=== PATIENT | male | born 1945 | race Caucasian/White ===

== ENCOUNTER → 2016-09-30 | Outpatient (CLI) | payer OTHER ==
[~2016-09-30] MED LIST: AMLO5TAB2 PO; CHOL20009; DXM/4 PO; FINA5TAB PO; HYDR25TA4 PO; LISI20TA3 PO; LISI5TAB PO; PANT40TA PO; TAMS0.4C38 PO
== END | disposition home or self-care (01) ==
LOC: C.LABPVFM 11:12
PROVIDERS: ATTEND Neurological Surgery
DX: C71.9 Malignant neoplasm of brain, unspecified (principal)

== ENCOUNTER → 2016-10-27 | Outpatient (CLI) | payer OTHER ==
[2016-10-27 14:13] VITALS: BP 116/78; PULSE 77; TEMP 36.5; O2SAT 97
--- NOTE | 2016-10-27 16:16 | Radiation Oncology Follow-Up ---
Radiation Oncology Follow-Up Date of Visit Oct 27, 2016. (Maria Elena Mcqueen PA-C) Reason For Visit 6 month follow-up (Maria Elena Mcqueen PA-C) Radiation Completion Date 03/17/16 (Maria Elena Mcqueen PA-C) Diagnosis (1) Glioblastoma Onset Date: 01/03/2016 Location: left parietal lobe Histology Subtype: GBM Stage: IV Permanent Comment: DIAGNOSIS: Brain, left parietal lobe, glioblastoma status post resection Status post completion of combined radiation and chemotherapy. Radiation completed 03/17/2016 received 6000 cGy. Chemotherapy comprised of Temodar. Will continue Temodar Last Edited By: Maria Elena Mcqueen on Apr 21, 2016 15:50 ( Maria Elena Mcqueen PA-C) History of Present Illness Mr. Qureshi is a 71-year-old gentleman who was previously in good health who recently started having issues with confusion which came on abruptly. The patient was brought to the emergency room with the thought that this may be a stroke. On 12/28/2015, he did have a CT of the head without contrast in the emergency Department which showed a 2.6 cm cystic lesion within the left parietal lobe with vasogenic edema. He subsequently had a CT chest on the same day which revealed no evidence of metastatic disease or a primary lung cancer. 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 He subsequently underwent a partial craniotomy underneath the supervision of Dr. Bonilla on 2015 which revealed a malignant glioma consistent with glioblastoma. The pathology was sent down for an expert second opinion consultation to [facility] and was confirmed to be glioblastoma. The patient was subsequently discharged and transferred to [facility] for subacute rehabilitation. The patient was also seen by Dr. Hayden and Dr. Saravia at [facility] for follow-up and consultation. The final recommendation was for consideration of chemotherapy with radiation therapy in the adjuvant setting. We are now seeing the patient in consultation. He completed combined radiation and chemotherapy. Radiation was completed 03/17. He received 6000 cGy. (Maria Elena Mcqueen PA-C) Interim History In the past 6 months he does have a complaint of tinnitus. This seems to be equal in both ears. He feels that associated with eating sweets. He has not had any problems with headaches or dizziness. Denies any change in vision. He has had some itchiness of the scalp and for head. There've been no changes of the skin. No redness. He is seen in follow-up by neuro-oncology. He has completed 6 months of the Temodar therapy. His most recent MRI was 10/21/2016. This showed postsurgical changes following resection of the left parietal occipital mass. 2 new nodules of enhancement in the splenium of the corpus callosum, measuring up to 9 mm in greatest dimension, without hyperemia on the perfusion study. Tiny 2 mm enhancing nodule along the lateral margin of the large surgical cavity is not change from August 2016 also without increased perfusion. His current plan of treatment is a recheck MRI of visit on 2016. His case is going to be reviewed at the neurologic cancer conference in [place]. (Maria Elena Mcqueen PA-C) Allergies Coded Allergies: No Known Allergies (Unverified , 03/21/16) Home Medications Scheduled Amlodipine Besylate (Norvasc), 1 TAB PO QAM Cholecalciferol (Vitamin D), DAILY Finasteride (Proscar), 1 TAB PO QAM Hydrochlorothiazide (Hctz), 1 TAB PO QAM Lisinopril (Prinivil), 1 TAB PO QAM Pantoprazole (Protonix), 40 MG PO DAILY Tamsulosin Hcl (Flomax), 1 CAP PO HS Review of Systems Gastrointestinal: Symptoms: WNL Oral: Symptoms: No Problems Respiratory: Symptoms: WNL Other Respiratory: pneumonia last month, no respproblem now Urinary: Symptoms: WNL Skin: Symptoms: No Problems Other Skin Symptoms: still gets itchy feeling on face or like "bugs crawling " (Maria Elena Mcqueen PA-C) Physical Exam Vital Signs Date Time Temp Pulse Resp B/P Pulse Ox O2 Delivery O2 Flow Rate FiO2 10/27/16 14:13 36.5 77 48 116/78 97 Pain: Patient Pain Scale: 0 - 10 Initial Pain Intensity: 0.0 General Appearance: no apparent distress Eyes: normal inspection, PERRL, EOMI ENT: normal ENT inspection Neck: no adenopathy, thyroid normal Respiratory/Chest: lungs clear, no respiratory distress, no accessory muscle use Cardiovascular: regular rate, rhythm, no gallop, no murmur Abdomen: non tender, soft, no organomegaly Extremities: no pedal edema Neurologic/Psychiatric: no motor/sensory deficits, alert, normal mood/affect Skin: warm/dry Lymphatic: no adenopathy (Maria Elena Mcqueen PA-C) Laboratory Studies Test 08/13/16 12:12 09/07/16 15:53 09/30/16 11:15 White Blood Count 6.86 K/uL (4.8-10.8) 5.24 K/uL (4.8-10.8) Red Blood Count 4.57 M/uL (4.7-6.1) 4.58 M/uL (4.7-6.1) Hemoglobin 14.4 g/dL (14.0-18.0) 14.4 g/dL (14.0-18.0) Hematocrit 41.7 % (42-52) 42.4 % (42-52) Mean Corpuscular Volume 91.2 fL (80-100) 92.6 fL (80-100) Mean Corpuscular Hemoglobin 31.5 pg (25-34) 31.4 pg (25-34) Mean Corpuscular Hemoglobin Concent 34.5 g/dl (32-36) 34.0 g/dl (32-36) Platelet Count 202 K/uL (130-400) 237 K/uL (130-400) Mean Platelet Volume 9.5 fL (7.4-10.4) 10.4 fL (7.4-10.4) Neutrophils (%) (Auto) 69.3 % 59.8 % Lymphocytes (%) (Auto) 17.5 % 26.0 % Monocytes (%) (Auto) 10.3 % 10.9 % Eosinophils (%) (Auto) 1.6 % 2.7 % Basophils (%) (Auto) 0.9 % 0.6 % Neutrophils # (Auto) 4.75 K/uL (1.4-6.5) 3.14 K/uL (1.4-6.5) Lymphocytes # (Auto) 1.20 K/uL (1.2-3.4) 1.36 K/uL (1.2-3.4) Monocytes # (Auto) 0.71 K/uL (0.11-0.59) 0.57 K/uL (0.11-0.59) Eosinophils # (Auto) 0.11 K/uL (0-0.5) 0.14 K/uL (0-0.5) Basophils # (Auto) 0.06 K/uL (0-0.2) 0.03 K/uL (0-0.2) RDW Standard Deviation 43.2 fL (36.4-46.3) 47.1 fL (36.4-46.3) RDW Coefficient of Variation 13.0 % (11.5-14.5) 13.9 % (11.5-14.5) Immature Granulocyte % (Auto) 0.4 % 0.0 % Immature Granulocyte # (Auto) 0.03 K/uL (0.00-0.02) 0.00 K/uL (0.00-0.02) Sodium Level 145 mmol/L (136-145) Potassium Level 3.3 mmol/L (3.5-5.1) Chloride Level 110 mmol/L (98-107) Carbon Dioxide Level 26 mmol/L (21-32) Anion Gap 9.0 mmol/L (3-11) Blood Urea Nitrogen 11 mg/dl (7-18) Creatinine 0.93 mg/dl (0.60-1.40) 1.20 mg/dl (0.60-1.40) Est Creatinine Clear Calc Drug Dose 83.3 ml/min Estimated GFR () 96.1 70.6 Estimated GFR (Non- 82.9 60.9 BUN/Creatinine Ratio 11.8 (10-20) Random Glucose 104 mg/dl (70-99) Calcium Level 8.7 mg/dl (8.5-10.1) Total Bilirubin 0.6 mg/dl (0.2-1) Aspartate Amino Transferase (AST) 17 U/L (15-37) Alanine Aminotransferase (ALT) 20 U/L (12-78) Alkaline Phosphatase 49 U/L (45-117) Total Protein 6.7 gm/dl (6.4-8.2) Albumin 3.8 gm/dl (3.4-5.0) Globulin 2.9 gm/dl (2.5-4.0) Albumin/Globulin Ratio 1.3 (0.9-2) (Maria Elena Mcqueen PA-C) Additional Studies MRI of the brain performed 10/21/2016 see history of present illness (Maria Elena Mcqueen PA-C) Assessment & Plan Plan: Patient is also seen and examined by Dr. Wells. I reviewed with him that tinnitus is a sign of decreased hearing. He may benefit from a hearing evaluation and hearing aides if recommended. We discussed the itching of the face and scalp. There can be dryness of the skin following treatment. I did recommend that he try using head and shoulders shampoo to see if this helps with the itching of the skin. He'll be seen on 11/18/2016 by neuro-oncology. He is also could have a recheck MRI of the brain at that time. We have requested a CD of the MRI from 10/21/2016. A follow-up appointment with our office was not given. He may return as needed or directed by neuro-oncology. (Maria Elena Mcqueen PA-C) I agree with note created by Maria Elena Mcqueen PA-C. I reviewed the patient's chart and information with her. I have examined and evaluated the patient. I reviewed relevant clinical information and answered the patient's and/or family' s questions. (Veeral. Wells MD) Total Time In Follow-Up I spent 20 minutes speaking to the patient performing examination. I spent 15 minutes reviewing information and completing this note. (Maria Elena Mcqueen PA-C) I spent 15 minutes examining and counseling the patient. (Veeral. Wells MD) Copy To Campos Saravia M.D.; Jaxon Vargas M.D.; Kaz Hayden MD
== END | disposition home or self-care (01) ==
LOC: C.ONC 14:01
PROVIDERS: ATTEND Radiology Radiation Oncology
DX: Z08 Encounter for follow-up examination after completed treatment for malignant neoplasm (principal); Z92.3 Personal history of irradiation; Z85.841 Personal history of malignant neoplasm of brain

== ENCOUNTER → 2016-11-02 | Outpatient (CLI) | payer OTHER ==
[~2016-11-02] MED LIST changes: -DXM/4 PO
== END | disposition home or self-care (01) ==
LOC: C.LABPVFM 16:01
PROVIDERS: ATTEND Neurological Surgery
DX: Z51.11 Encounter for antineoplastic chemotherapy (principal); C71.9 Malignant neoplasm of brain, unspecified; H53.461 Homonymous bilateral field defects, right side

== ENCOUNTER → 2016-11-30 | Outpatient (CLI) | payer OTHER | END | disposition home or self-care (01) | LOC: C.LABPVFM 15:53 | PROVIDERS: ATTEND Neurological Surgery | DX: C71.9 Malignant neoplasm of brain, unspecified (principal); I10 Essential (primary) hypertension; Z68.27 Body mass index [BMI] 27.0-27.9, adult ==

== ENCOUNTER → 2017-01-25 | Outpatient (CLI) | payer OTHER | END | disposition home or self-care (01) | LOC: C.LABPVFM 15:58 | PROVIDERS: ATTEND Neurological Surgery | DX: C71.9 Malignant neoplasm of brain, unspecified (principal); I10 Essential (primary) hypertension; Z68.27 Body mass index [BMI] 27.0-27.9, adult ==

== ENCOUNTER → 2017-02-09 | Outpatient (CLI) | payer OTHER ==
[2017-02-09 17:48] LABS: URINE APPEARANCE CLEAR (CLEAR); URINE BILIRUBIN NEG (NEG); URINE COLOR YELLOW; URINE EPITHELIAL CELL AUTO 0-5 /lpf (0-5); URINE NITRITE NEG (NEG); URINE PH 6.5 (4.5-7.5); UROBILINOGEN NEG (NEG); ZZUR CULT IF INDIC CLEAN CATCH NO
[2017-02-09 17:55] LABS: MANUAL MICROSCOPIC REQUIRED? NO; REVIEW REQ? NO
[2017-02-09 17:55] LABS: BLOOD UREA NITROGEN 17 mg/dl (7-18); CALCIUM 8.6 mg/dl (8.5-10.1); CARBON DIOXIDE 34 mmol/L (21-32); CHLORIDE 105 mmol/L (98-107); GLUCOSE 93 mg/dl (70-99); SODIUM 142 mmol/L (136-145)
== END | disposition home or self-care (01) ==
LOC: C.LABPVFM 14:19
PROVIDERS: ATTEND Family Medicine
DX: I10 Essential (primary) hypertension (principal)

== ENCOUNTER → 2017-02-23 | Outpatient (CLI) | payer OTHER ==
[2017-02-23 12:31] LABS: BASO % 0.7 %; BASO ABS # 0.05 K/uL (0-0.2); COMPLETE YES; EOS % 2.5 %; HEMATOCRIT 42.7 % (42-52); IG% 0.1 %; LYMPH % 20.9 %; LYMPH ABS # 1.45 K/uL (1.2-3.4); MEAN CELL VOLUME 93.8 fL (80-100); MEAN CORPUSCULAR HEMOGLOBIN 32.3 pg (25-34); MEAN CORPUSCULAR HGB CONC 34.4 g/dl (32-36); MEAN PLATELET VOLUME 10.2 fL (7.4-10.4); MONO % 7.6 %; NEUT % 68.2 %; PLATELET COUNT 206 K/uL (130-400); RED BLOOD COUNT 4.55 M/uL (4.7-6.1); WHITE BLOOD COUNT 6.93 K/uL (4.8-10.8)
[2017-02-23 12:42] LABS: URINE APPEARANCE CLEAR (CLEAR); URINE BILIRUBIN NEG (NEG); URINE COLOR YELLOW; URINE NITRITE NEG (NEG); URINE SPECIFIC GRAVITY 1.019 (1.000-1.030); UROBILINOGEN NEG (NEG)
[2017-02-23 12:50] LABS: MANUAL MICROSCOPIC REQUIRED? NO; REVIEW REQ? NO
[2017-02-23 13:00] LABS: ALB/GLOB RATIO 1.4 (0.9-2); ALKALINE PHOSPHATASE 49 U/L (45-117); ALT/SGPT 16 U/L (12-78); AST/SGOT 10 U/L (15-37); BLOOD UREA NITROGEN 15 mg/dl (7-18); BUN/CREATININE RATIO 12.2 (10-20); CARBON DIOXIDE 30 mmol/L (21-32); CHLORIDE 104 mmol/L (98-107); GLUCOSE 103 mg/dl (70-99); POTASSIUM 3.3 mmol/L (3.5-5.1); SODIUM 143 mmol/L (136-145)
== END | disposition home or self-care (01) ==
LOC: C.LABPVFM 08:03
PROVIDERS: ATTEND Internal Medicine Hematology & Oncology
DX: C71.3 Malignant neoplasm of parietal lobe (principal)

== ENCOUNTER 2017-03-03 21:36 | Emergency (ER) | payer OTHER ==
[~2017-03-03] VITALS: Ht 172.7 cm; Wt 82.0 kg
[~2017-03-03 21:36] MED LIST changes: -LISI20TA3 PO
[2017-03-03 21:58] VITALS: TEMP 37.4; Ht 172.7 cm; Wt 82.0 kg
[2017-03-03] MEDS ORDERED: SODIUM CHLORIDE 0.9% 1000ML 500 ML IV STA (23:10)
[2017-03-03 23:19] LABS: BASO % 0.5 %; BASO ABS # 0.05 K/uL (0-0.2); COMPLETE YES; EOS % 1.4 %; HEMATOCRIT 43.2 % (42-52); IG% 0.3 %; LYMPH ABS # 1.76 K/uL (1.2-3.4); MEAN CELL VOLUME 91.5 fL (80-100); MEAN CORPUSCULAR HEMOGLOBIN 31.4 pg (25-34); MEAN CORPUSCULAR HGB CONC 34.3 g/dl (32-36); MEAN PLATELET VOLUME 9.2 fL (7.4-10.4); MONO % 9.7 %; NEUT % 71.1 %; PLATELET COUNT 202 K/uL (130-400); RED BLOOD COUNT 4.72 M/uL (4.7-6.1); WHITE BLOOD COUNT 10.36 K/uL (4.8-10.8)
[2017-03-03 23:23] VITALS: BP 119/96
[2017-03-03 23:43] LABS: URINE APPEARANCE CLEAR (CLEAR); URINE BILIRUBIN NEG (NEG); URINE COLOR YELLOW; URINE EPITHELIAL CELL AUTO 0-5 /lpf (0-5); URINE NITRITE NEG (NEG); URINE PH 5.5 (4.5-7.5); UROBILINOGEN NEG (NEG); ZZUR CULT IF INDIC CLEAN CATCH NO
[2017-03-04 00:01] LABS: ALB/GLOB RATIO 1.3 (0.9-2); ALKALINE PHOSPHATASE 50 U/L (45-117); ALT/SGPT 20 U/L (12-78); BLOOD UREA NITROGEN 23 mg/dl (7-18); BUN/CREATININE RATIO 19.3 (10-20); CALCIUM 8.5 mg/dl (8.5-10.1); CARBON DIOXIDE 28 mmol/L (21-32); CHLORIDE 104 mmol/L (98-107); GLUCOSE 97 mg/dl (70-99); SODIUM 141 mmol/L (136-145)
[2017-03-04 00:04] LABS: MANUAL MICROSCOPIC REQUIRED? NO; REVIEW REQ? NO
[2017-03-04 00:33] LABS: POTASSIUM 3.6 mmol/L (3.5-5.1)
[2017-03-04 00:36] VITALS: PULSE 66; O2SAT 96
--- NOTE | 2017-03-04 01:32 | EMERGENCY ROOM VISIT NOTE ---
History Report prepared by Calvin: Guilherme Cifuentes Under the Supervision of: Dr. Kei Velazquez M.D. First contact with patient: 22:54 Chief Complaint: CONFUSION Stated Complaint: HAS [id number] TODAY-TEMP 100 Nursing Triage Summary: pt presents with family, family states the pt was unable to walk or stand earlier today, the family now relizes it is time for a different care plan family would like to have pt checked out/admitted and have further options offered for home care reported pt has been "fine" until his gamenite treatment, since this treamet there has been a considerable decline History of Present Illness The patient is a 71 year old male with a history of glioblastoma who presents to the Emergency Room with complaints of increased confusion. The patient has been confused since having gamma knife treatment at [facility] almost two months ago. Family notes that his confusion was worse today, however it is better now than it was earlier today. The patient did have a low grade fever of 100 today. The patient also had a fall earlier today. He denies any injury, although his family is concerned that he may have hit his head. The fall was unwitnessed. There was no change in his confusion after the fall. He denies sore throat, cough or congestion, chest pain, shortness of breath, or urinary symptoms. Source of History: patient, family Onset: almost 2 months ago Position: other (global) Quality: other (confused) Timing: other (increased) Associated Symptoms: + fevers, No sorethroat, No cough, No chest pain, No SOB, No urinary symptoms Review of Systems See HPI for pertinent positives & negatives. A total of 10 systems reviewed and were otherwise negative. Past Medical & Surgical Medical Problems: (1) Brain mass (2) Glioblastoma (3) Hypertension (4) Intracranial mass (5) Melanoma Family History Cancer Hypertension Social History Smoking Status: Former Smoker Alcohol Use: none Drug Use: none Marital Status: Housing Status: lives with significant other Occupation Status: retired Current/Historical Medications Scheduled Cholecalciferol (Vitamin D), DAILY Finasteride (Proscar), 1 TAB PO QAM Hydrochlorothiazide (Hctz), 1 TAB PO QAM Lisinopril (Prinivil), 1 TAB PO QAM Pantoprazole (Protonix), 40 MG PO DAILY Tamsulosin Hcl (Flomax), 1 CAP PO HS Allergies Coded Allergies: No Known Allergies (Unverified , 03/21/16) Physical Exam Vital Signs Date Time Temp Pulse Resp B/P (MAP) Pulse Ox O2 Delivery O2 Flow Rate FiO2 03/04/17 00:36 66 20 96 03/04/17 00:06 72 17 95 03/03/17 23:23 119/96 03/03/17 23:22 75 18 119/96 95 Room Air 03/03/17 23:08 75 03/03/17 21:58 37.4 87 18 130/88 94 Room Air Physical Exam GENERAL: Patient is in no acute distress. HEENT: No acute trauma, normocephalic atraumatic, mucous membranes moist, no nasal congestion, no scleral icterus. NECK: No stridor, no adenopathy, no meningismus, trachea is midline. LUNGS: Clear to auscultation bilaterally, no wheeze, no rhonchi, breath sounds equal. HEART: Without murmurs gallops or rubs, regular rate and rhythm. ABDOMEN: Soft, nontender, bowel sounds positive, no hernias, no peritonitis. EXTREMITIES: No cyanosis or edema, full range of motion of all the joints without pain or difficulty, no signs for acute trauma. NEUROLOGIC: Mild confusion but awake and alert, no focal motor deficits, answers questions appropriately. SKIN: No rash, no jaundice, no diaphoresis. Medical Decision & Procedures ER Provider Diagnostic Interpretation: X-ray results as stated below per interpretation by me. Radiology results as stated below per my review and radiologist interpretation: CT Head: Compared to 01/03/16. Redemonstrated left occipital resection cavity with overlying skull defect. Extensive white matter hypoattenuation could reflect radiation therapy, but this is more pronounced on the left and there is 5 mm of midline shift to the right. Contrast-enhanced MRI could further assess for residual or recurrent tumor. Interpreted by Vinod Vasquez MD, from [facility]. Chest One View Portable: No CHF or pneumonia, no significant mediastinal widening. Laboratory Results 03/03/17 23:00 Red Blood Count 4.72, Mean Corpuscular Volume 91.5, Mean Corpuscular Hemoglobin 31.4, Mean Corpuscular Hemoglobin Concent 34.3, Mean Platelet Volume 9.2, Neutrophils (%) (Auto) 71.1, Lymphocytes (%) (Auto) 17.0, Monocytes (%) (Auto) 9.7, Eosinophils (%) (Auto) 1.4, Basophils (%) (Auto) 0.5, Neutrophils # (Auto) 7.36, Lymphocytes # (Auto) 1.76, Monocytes # (Auto) 1.01, Eosinophils # (Auto) 0.15, Basophils # (Auto) 0.05 03/03/17 23:00 03/04/17 00:09 Test 03/03/17 23:00 03/03/17 23:34 03/04/17 00:09 White Blood Count 10.36 K/uL (4.8-10.8) Red Blood Count 4.72 M/uL (4.7-6.1) Hemoglobin 14.8 g/dL (14.0-18.0) Hematocrit 43.2 % (42-52) Mean Corpuscular Volume 91.5 fL (80-100) Mean Corpuscular Hemoglobin 31.4 pg (25-34) Mean Corpuscular Hemoglobin Concent 34.3 g/dl (32-36) Platelet Count 202 K/uL (130-400) Mean Platelet Volume 9.2 fL (7.4-10.4) Neutrophils (%) (Auto) 71.1 % Lymphocytes (%) (Auto) 17.0 % Monocytes (%) (Auto) 9.7 % Eosinophils (%) (Auto) 1.4 % Basophils (%) (Auto) 0.5 % Neutrophils # (Auto) 7.36 K/uL (1.4-6.5) Lymphocytes # (Auto) 1.76 K/uL (1.2-3.4) Monocytes # (Auto) 1.01 K/uL (0.11-0.59) Eosinophils # (Auto) 0.15 K/uL (0-0.5) Basophils # (Auto) 0.05 K/uL (0-0.2) RDW Standard Deviation 43.8 fL (36.4-46.3) RDW Coefficient of Variation 13.3 % (11.5-14.5) Immature Granulocyte % (Auto) 0.3 % Immature Granulocyte # (Auto) 0.03 K/uL (0.00-0.02) Anion Gap 9.0 mmol/L (3-11) Est Creatinine Clear Calc Drug Dose 54.6 ml/min Estimated GFR () 70.1 Estimated GFR (Non- 60.5 BUN/Creatinine Ratio 19.3 (10-20) Calcium Level 8.5 mg/dl (8.5-10.1) Total Bilirubin 0.4 mg/dl (0.2-1) Alanine Aminotransferase (ALT/SGPT) 20 U/L (12-78) Alkaline Phosphatase 50 U/L (45-117) Troponin I < 0.015 ng/ml (0-0.045) Total Protein 6.9 gm/dl (6.4-8.2) Albumin 3.9 gm/dl (3.4-5.0) Globulin 3.0 gm/dl (2.5-4.0) Albumin/Globulin Ratio 1.3 (0.9-2) Thyroid Stimulating Hormone (TSH) 6.120 uIu/ml (0.300-4.500) Free Thyroxine 0.84 ng/dl (0.80-1.60) Urine Color YELLOW Urine Appearance CLEAR (CLEAR) Urine pH 5.5 (4.5-7.5) Urine Specific Picher 1.010 (1.000-1.030) Urine Protein NEG (NEG) Urine Glucose (UA) NEG (NEG) Urine Ketones NEG (NEG) Urine Occult Blood TRACE (NEG) Urine Nitrite NEG (NEG) Urine Bilirubin NEG (NEG) Urine Urobilinogen NEG (NEG) Urine Leukocyte Esterase NEG (NEG) Urine WBC (Auto) 0 /hpf (0-5) Urine RBC (Auto) 0-4 /hpf (0-4) Urine Hyaline Casts (Auto) 0 /lpf (0-5) Urine Epithelial Cells (Auto) 0-5 /lpf (0-5) Urine Bacteria (Auto) NEG (NEG) Aspartate Amino Transf (AST/SGOT) 9 U/L (15-37) Laboratory results reviewed by me. Medications Administered Medications (Trade) Dose Ordered Sig/Dianne Route Start Time Stop Time Status Last Admin Dose Admin Sodium Chloride 500 ml @ 999 mls/hr Q31M STAT IV 03/03/17 23:10 03/03/17 23:40 DC 03/03/17 23:43 999 MLS/HR ECG Indication: altered mental status Rate (beats per minute): 77 Rhythm: normal sinus Findings: no acute ischemic change, no ectopy, other (poor R wave progression) ED Course 2250: The patient was evaluated by [place] medical student. 2310: NSS 500 ml @ 999 mls/hr. 2315: The patient was evaluated in room A4b. A complete history and physical exam was performed. 0000: Case Management discussed the options with the family. 0047: Reassessed the patient. Discussed the workup with patient and family. They understand and agree with the discharge instructions. Medical Decision Differential diagnosis includes worsening glioblastoma, intracranial bleeding, stroke, dehydration, anemia, electrolyte imbalance, UTI, pneumonia. Medication Reconciliation: I attest that I have personally reviewed the patient' s current medication list. Blood Pressure Screening: Patient was found to have normal blood pressure on screening and does not require follow-up. There is no leukocytosis or concerning anemia. No significant electrolyte abnormality, kidney failure or hepatitis. Urinalysis does not show infection. Chest does not show pneumonia or CHF. Brain CT shows some postop changes, no acute bleed. EKG shows a normal sinus rhythm, no acute ischemic change. Cardiac enzyme testing times one is not consistent with acute cardiac injury. The patient appears to be in a euthyroid state. Blood cultures are pending. The patient presents with some ongoing confusion with a fall earlier today. He had a reported low-grade temperature at home. Workup here is benign. He did receive IV saline, he feels improved. I do think he is stable for discharge. The family was happy with the care and plan. They will start to arrange more help for him at home. If he is worsening, he can return. Impression Primary Impression: Confusion Additional Impression: Glioblastoma Scribe Attestation The scribe's documentation has been prepared under my direction and personally reviewed by me in its entirety. I confirm that the note above accurately reflects all work, treatment, procedures, and medical decision making performed by me. Departure Information Dispostion Home / Self-Care Referrals Jaxon Vargas M.D. (PCP) Forms HOME CARE DOCUMENTATION FORM, IMPORTANT VISIT INFORMATION Patient Instructions [facility] Additional Instructions testing today was ok follow with your doctor as an outpt return for worsening symptoms no findings of infection by workup Problem Qualifiers
--- NOTE | 2017-03-04 06:52 | DIAGNOSTIC IMAGING REPORT ---
CHEST ONE VIEW PORTABLE CLINICAL HISTORY: EVALUATE ALTERED MENTAL STATUS/WEAKNESS COMPARISON STUDY: 03/19/2016 FINDINGS: Minimal chronic bibasilar atelectatic change. No focal infiltrate. No evidence for cardiac enlargement. Diaphragms smooth. IMPRESSION: Chronic change. No acute process. Electronically signed by: Saravanan Wiggins M.D. 03/04/2017 6:51 AM Dictated Date/Time: 03/04/2017 6:50 AM
--- NOTE | 2017-03-04 07:07 | DIAGNOSTIC IMAGING REPORT ---
HEAD CT NONCONTRAST CT DOSE: 614.27 mGy.cm HISTORY: EVALUATE ALTERED MENTAL STATUS/WEAKNESS TECHNIQUE: Multiaxial CT images of the head were performed without the use of intravenous contrast. Automated exposure control was utilized for this study. Comparison: Head CT 01/03/2016. Outside hospital brain MRI 10/21/2016. Findings: The paranasal sinuses and mastoid air cells are clear. There is again noted a left parietal/occipital craniotomy. Increased bilateral parietal/occipital vasogenic edema, left greater than right. Left occipital defect consistent with the resection cavity is again noted. There is now 5 mm of right midline shift which has progressed. No hematoma, midline shift, or acute infarct. Progressive mass effect along the atrium of the left lateral ventricle. Impression: Postoperative changes consistent with prior left occipital resection. Vasogenic edema seen at the bilateral parietal/occipital lobes, left greater than right, has progressed. This results in 5 mm of right midline shift. Follow-up brain MRI is recommended for further evaluation. Electronically signed by: Giles Leiva M.D. 03/04/2017 7:06 AM Dictated Date/Time: 03/04/2017 7:02 AM
== END 2017-03-04 01:24 | disposition home or self-care (01) ==
LOC: C.EDB 21:39 → C.EDA 03-04 01:24
DX: R41.0 Disorientation, unspecified (principal); C71.9 Malignant neoplasm of brain, unspecified; Z98.890 Other specified postprocedural states; W19.XXXA Unspecified fall, initial encounter; I10 Essential (primary) hypertension; Z85.820 Personal history of malignant melanoma of skin; Z80.9 Family history of malignant neoplasm, unspecified; Z82.49 Family history of ischemic heart disease and other diseases of the circulatory system; Z79.899 Other long term (current) drug therapy

== ENCOUNTER → 2017-03-11 | Outpatient (CLI) | payer OTHER ==
[~2017-03-11] MED LIST changes: -AMLO5TAB2 PO; +LISI20TA3 PO
== END | disposition home or self-care (01) ==
LOC: C.LABSPEC 17:20
PROVIDERS: ATTEND Podiatrist Foot & Ankle Surgery
DX: L60.0 Ingrowing nail (principal)

== ENCOUNTER → 2017-04-07 | Outpatient (CLI) | payer OTHER | END | disposition home or self-care (01) | LOC: C.LABPVFM 15:58 | PROVIDERS: ATTEND Neurological Surgery | DX: C71.9 Malignant neoplasm of brain, unspecified (principal); H53.47 Heteronymous bilateral field defects ==

== ENCOUNTER → 2017-04-17 | Outpatient (CLI) | payer OTHER ==
[2017-04-17 13:24] LABS: BLOOD UREA NITROGEN 15 mg/dl (7-18); BUN/CREATININE RATIO 13.5 (10-20); CARBON DIOXIDE 33 mmol/L (21-32); CHLORIDE 104 mmol/L (98-107); GLUCOSE 120 mg/dl (70-99); POTASSIUM 3.4 mmol/L (3.5-5.1); SODIUM 140 mmol/L (136-145)
== END | disposition home or self-care (01) ==
LOC: C.LABPVFM 08:37
PROVIDERS: ATTEND Family Medicine
DX: I10 Essential (primary) hypertension (principal)

== ENCOUNTER → 2017-06-07 | Outpatient (CLI) | payer OTHER ==
--- NOTE | 2017-06-07 15:13 | DIAGNOSTIC IMAGING REPORT ---
BILATERAL LOWER EXTREMITY VENOUS DOPPLER HISTORY: C71.9 Glioblastoma [id number] Peripheral [id number] COMPARISON STUDY: None. FINDINGS: There is normal compressibility, flow, and augmentation within the bilateral lower extremity deep venous systems. IMPRESSION: No DVT within the right or left lower extremity. Electronically signed by: Giles Leiva M.D. 06/07/2017 3:12 PM Dictated Date/Time: 06/07/2017 3:11 PM
== END | disposition home or self-care (01) ==
LOC: C.ULTR 14:11
PROVIDERS: ATTEND Family Medicine
DX: C71.9 Malignant neoplasm of brain, unspecified (principal); R60.9 Edema, unspecified

== ENCOUNTER 2017-06-13 13:19 | Emergency (ER) | payer OTHER ==
[~2017-06-13 13:19] MED LIST changes: -LISI20TA3 PO
[2017-06-13 13:22] VITALS: TEMP 37
[2017-06-13 14:01] LABS: BASO % 0.6 %; BASO ABS # 0.04 K/uL (0-0.2); COMPLETE YES; HEMATOCRIT 46.5 % (42-52); IG% 0.1 %; LYMPH % 19.6 %; LYMPH ABS # 1.33 K/uL (1.2-3.4); MEAN CELL VOLUME 93.2 fL (80-100); MEAN CORPUSCULAR HEMOGLOBIN 33.7 pg (25-34); MEAN CORPUSCULAR HGB CONC 36.1 g/dl (32-36); MEAN PLATELET VOLUME 9.5 fL (7.4-10.4); MONO % 9.2 %; NEUT % 69.5 %; PLATELET COUNT 241 K/uL (130-400); RED BLOOD COUNT 4.99 M/uL (4.7-6.1); WHITE BLOOD COUNT 6.77 K/uL (4.8-10.8)
[2017-06-13] MEDS ORDERED: LISI20TA3 PO (14:09)
--- NOTE | 2017-06-13 14:42 | DIAGNOSTIC IMAGING REPORT ---
HEAD WITHOUT CONTRAST (CT) CLINICAL HISTORY: 71 years-old Male with CARLISLE . Acute headache with hypertension. History of brain cancer TECHNIQUE: Multiple axial CT images of the head were obtained without contrast. A dose lowering technique was utilized adhering to the principles of ALARA. CT DOSE: 537.48 mGy.cm COMPARISON: CT head 03/03/2017. FINDINGS: There is evidence of prior left occipital craniotomy. Encephalomalacia at the postoperative bed at the area of prior resection is again noted. There is decreased amount of vasogenic edema involving the bilateral parietal occipital lobes. Persistent low-attenuation within the periventricular, deep and subcortical white matter of the cerebral hemispheres bilaterally in a posterior predominant distribution is again seen suggesting chronic microvascular ischemic changes and/or chronic insult. Volume loss with encephalomalacia is also seen within the left temporal lobe, unchanged. There is resolution of the previously noted rightward midline shift. There is no intracranial hemorrhage, significant mass effect, hydrocephalus or new intracranial mass, however IV contrast was not administered. No acute calvarial fracture. The mastoid air cells, middle ear cavities and paranasal sinuses appear clear. Soft tissues are unremarkable. Orbits are symmetric. IMPRESSION: 1. No acute intracranial abnormality. 2. Prior left occipital craniotomy with partial left occipital lobe resection. There is decreased amount of vasogenic edema within the bilateral parietal occipital lobes. Resolution of the previously noted rightward midline shift. 3. Background chronic microvascular ischemic changes with left parieto-occipital and left temporal encephalomalacia, unchanged. The above report was generated using voice recognition software. It may contain grammatical, syntax or spelling errors. Electronically signed by: Tye Ochoa M.D. 06/13/2017 2:41 PM Dictated Date/Time: 06/13/2017 2:35 PM
[2017-06-13 14:50] LABS: BLOOD UREA NITROGEN 13 mg/dl (7-18); BUN/CREATININE RATIO 13.4 (10-20); CALCIUM 9.2 mg/dl (8.5-10.1); CARBON DIOXIDE 29 mmol/L (21-32); CHLORIDE 104 mmol/L (98-107); CREATININE 0.96 mg/dl (0.60-1.40); GLUCOSE 96 mg/dl (70-99); SODIUM 140 mmol/L (136-145)
[2017-06-13 15:25] VITALS: BP 145/103; PULSE 71; O2SAT 94
--- NOTE | 2017-06-13 19:43 | EMERGENCY ROOM VISIT NOTE ---
History Report prepared by Calvin: Marifer Caraballo Under the Supervision of: Dr. Aryan Agrawal D.O. First contact with patient: 13:34 Chief Complaint: HYPERTENSION Stated Complaint: HIGH BLOOD PRESSURE History of Present Illness The patient is a 71 year old male who presents to the Emergency Room with complaints of persistent high blood pressure starting earlier today. The patient has a history of brain cancer. He had a tumor removed from his brain and he has had memory problems since then. He is currently on chemo. His girlfriend has been checking his blood pressure because the chemotherapy can raise it. He has been complaining of headaches more than usual. He has been confused which is a part of his brain cancer that has been unchanged for several months.. He denies any chest pain, SOB, abdominal pain, nausea, vomiting , diarrhea, weakness, numbness, or dysuria. He had foot swelling recently which has improved. He had a US which showed no clots. Source of History: patient, spouse/significant other Onset: earlier today Position: other (global) Quality: other (high blood pressure) Timing: other (persistent) Associated Symptoms: + headache, No chest pain, No SOB, No nausea, No vomiting, No abdominal pain, No diarrhea, No urinary symptoms, No weakness, No numbness Review of Systems See HPI for pertinent positives & negatives. A total of 10 systems reviewed and were otherwise negative. Past Medical & Surgical Medical Problems: (1) Brain mass (2) Glioblastoma (3) Hypertension (4) Intracranial mass (5) Melanoma Family History Cancer Hypertension Social History Smoking Status: Former Smoker Alcohol Use: none Drug Use: none Marital Status: Housing Status: lives with significant other Occupation Status: retired Current/Historical Medications Scheduled Cholecalciferol (Vitamin D), DAILY Finasteride (Proscar), 1 TAB PO QAM Hydrochlorothiazide (Hctz), 1 TAB PO QAM Lisinopril (Prinivil), 20 MG PO DAILY Pantoprazole (Protonix), 40 MG PO DAILY Tamsulosin Hcl (Flomax), 1 CAP PO HS Allergies Coded Allergies: No Known Allergies (Unverified , 03/21/16) Physical Exam Vital Signs Date Time Temp Pulse Resp B/P (MAP) Pulse Ox O2 Delivery O2 Flow Rate FiO2 06/13/17 15:25 71 17 145/103 94 06/13/17 14:34 69 21 153/99 94 Room Air 06/13/17 14:06 72 15 156/105 94 Room Air 06/13/17 13:36 74 06/13/17 13:22 37.0 88 15 163/109 97 Room Air Physical Exam GENERAL: sitting up in bed, slow to respond to questions, no acute distress. EYE EXAM: normal conjunctiva, PERRL and EOM's grossly intact OROPHARYNX: no exudate, no erythema, lips, buccal mucosa, and tongue normal and mucous membranes are moist NECK: supple, no nuchal rigidity, no adenopathy, non-tender LUNGS: Clear to auscultation. Normal chest wall mechanics HEART: no murmurs, S1 normal and S2 normal ABDOMEN: abdomen soft, non-tender, normo-active bowel sounds, no masses, no rebound or guarding. BACK: Back is symmetrical on inspection and there is no deformity, no midline tenderness, no CVA tenderness. SKIN: no rashes and no bruising UPPER EXTREMITIES: upper extremities are grossly normal. LOWER EXTREMITIES: No pitting edema. NEURO EXAM: Normal sensorium but slow to respond to questioning, cranial nerves II-XII intact, normal speech, no weakness of arms, no weakness of legs. No drift. Finger to nose intact. Gross sensation intact. Medical Decision & Procedures ER Provider Diagnostic Interpretation: Radiology results as stated below per my review and the radiologist's interpretation: HEAD WITHOUT CONTRAST (CT) CLINICAL HISTORY: 71 years-old Male with CARLISLE . Acute headache with hypertension. History of brain cancer TECHNIQUE: Multiple axial CT images of the head were obtained without contrast. A dose lowering technique was utilized adhering to the principles of ALARA. CT DOSE: 537.48 mGy.cm COMPARISON: CT head 03/03/2017. FINDINGS: There is evidence of prior left occipital craniotomy. Encephalomalacia at the postoperative bed at the area of prior resection is again noted. There is decreased amount of vasogenic edema involving the bilateral parietal occipital lobes. Persistent low-attenuation within the periventricular, deep and subcortical white matter of the cerebral hemispheres bilaterally in a posterior predominant distribution is again seen suggesting chronic microvascular ischemic changes and/or chronic insult. Volume loss with encephalomalacia is also seen within the left temporal lobe, unchanged. There is resolution of the previously noted rightward midline shift. There is no intracranial hemorrhage, significant mass effect, hydrocephalus or new intracranial mass, however IV contrast was not administered. No acute calvarial fracture. The mastoid air cells, middle ear cavities and paranasal sinuses appear clear. Soft tissues are unremarkable. Orbits are symmetric. IMPRESSION: 1. No acute intracranial abnormality. 2. Prior left occipital craniotomy with partial left occipital lobe resection. There is decreased amount of vasogenic edema within the bilateral parietal occipital lobes. Resolution of the previously noted rightward midline shift. 3. Background chronic microvascular ischemic changes with left parieto-occipital and left temporal encephalomalacia, unchanged. The above report was generated using voice recognition software. It may contain grammatical, syntax or spelling errors. Electronically signed by: Tye Ochoa M.D. 06/13/2017 2:41 PM Dictated Date/Time: 06/13/2017 2:35 PM Laboratory Results 06/13/17 13:45 Red Blood Count 4.99, Mean Corpuscular Volume 93.2, Mean Corpuscular Hemoglobin 33.7, Mean Corpuscular Hemoglobin Concent 36.1, Mean Platelet Volume 9.5, Neutrophils (%) (Auto) 69.5, Lymphocytes (%) (Auto) 19.6, Monocytes (%) (Auto) 9.2, Eosinophils (%) (Auto) 1.0, Basophils (%) (Auto) 0.6, Neutrophils # (Auto) 4.70, Lymphocytes # (Auto) 1.33, Monocytes # (Auto) 0.62, Eosinophils # (Auto) 0.07, Basophils # (Auto) 0.04 06/13/17 13:45 Test 06/13/17 13:45 White Blood Count 6.77 K/uL (4.8-10.8) Red Blood Count 4.99 M/uL (4.7-6.1) Hemoglobin 16.8 g/dL (14.0-18.0) Hematocrit 46.5 % (42-52) Mean Corpuscular Volume 93.2 fL (80-100) Mean Corpuscular Hemoglobin 33.7 pg (25-34) Mean Corpuscular Hemoglobin Concent 36.1 g/dl (32-36) Platelet Count 241 K/uL (130-400) Mean Platelet Volume 9.5 fL (7.4-10.4) Neutrophils (%) (Auto) 69.5 % Lymphocytes (%) (Auto) 19.6 % Monocytes (%) (Auto) 9.2 % Eosinophils (%) (Auto) 1.0 % Basophils (%) (Auto) 0.6 % Neutrophils # (Auto) 4.70 K/uL (1.4-6.5) Lymphocytes # (Auto) 1.33 K/uL (1.2-3.4) Monocytes # (Auto) 0.62 K/uL (0.11-0.59) Eosinophils # (Auto) 0.07 K/uL (0-0.5) Basophils # (Auto) 0.04 K/uL (0-0.2) RDW Standard Deviation 45.9 fL (36.4-46.3) RDW Coefficient of Variation 13.4 % (11.5-14.5) Immature Granulocyte % (Auto) 0.1 % Immature Granulocyte # (Auto) 0.01 K/uL (0.00-0.02) Anion Gap 7.0 mmol/L (3-11) Estimated GFR () 91.8 Estimated GFR (Non- 79.2 BUN/Creatinine Ratio 13.4 (10-20) Calcium Level 9.2 mg/dl (8.5-10.1) Chemistry Specimen Hemolysis Laboratory results per my review. ECG Indication: other Rate (beats per minute): 71 Rhythm: sinus rhythm Findings: left axis deviation, no ectopy Comparison ECG Date: 03-Mar-2017 Change: no significant change ED Course ED COURSE: Vital signs were reviewed and showed hypertension. The patients medical record was reviewed The above diagnostic studies were performed and reviewed. ED treatments and interventions as stated above. 1337: The patient was evaluated in room C7. A complete history and physical examination was performed. 1455: Upon reevaluation, the patient is still at baseline. I discussed my findings with the patient and his SO and they understand and agree with the treatment plan. Based on the patients age, coexisting illnesses, exam and lab findings the decision to treat as an outpatient was made. The patient remained stable while under my care. The patient appeared well at the time of discharge. Medical Decision Differential Diagnosis includes but is not limited to headache, tension headache , cluster headache, migraine, subarachnoid hemorrhage, meningitis, mass, central venous thrombus, concussion, trauma and epidural/subdural hemorrhage. Patient is a 71-year-old male brought in by his girlfriend with a past history of a previous brain mass with resection. He was brought in for hypertension. Significant other notes that he is at baseline although has had confusion which started several months ago. Systolic pressures were in the 150s. Patient has no other complaints with the exception of a mild increase in frequency of headaches. He is neurologically intact. CT head and EKG were unremarkable. Patient was updated at bedside. He was discharged follow-up with PCP for hypertension. Discussed with Pt concerning signs and symptoms to watch out for. Pt was instructed to follow up with their PCP and discussed with the patient their option to return to the ED at anytime for persistent or worsening symptoms. The appropriate anticipatory guidance and out-patient management, including indications for return to the emergency department, were explained at length to the patient and understood. Medication Reconcilliation Current Medication List: was personally reviewed by me Blood Pressure Screening Patient's blood pressure: Elevated blood pressure Blood pressure disposition: Referred to PCP Impression Primary Impression: Hypertension Additional Impression: Headache Scribe Attestation The scribe's documentation has been prepared under my direction and personally reviewed by me in its entirety. I confirm that the note above accurately reflects all work, treatment, procedures, and medical decision making performed by me. Departure Information Dispostion Home / Self-Care Referrals Jaxon Vargas M.D. (PCP) Forms HOME CARE DOCUMENTATION FORM, IMPORTANT VISIT INFORMATION, WORK / SCHOOL INSTRUCTIONS Patient Instructions Hypertension Control, My [facility] Proximiant Additional Instructions Please follow up with your primary care doctor with in the next 24 hours. Any worsening of your symptoms, please return to the ED immediately. This includes any fevers greater than 100.4, worsening pain, chest pain, shortness breath, persistent nausea, vomiting, change in vision, weakness in arms or legs, unable to eat or drink, or any other concerning signs or symptoms from your standpoint. Problem Qualifiers Primary Impression: Hypertension Hypertension type: unspecified Qualified Codes: I10 - Essential (primary) hypertension Additional Impression: Headache Headache type: unspecified Headache chronicity pattern: episodic headache Intractability: not intractable Qualified Codes: R51 - Headache
== END 2017-06-13 15:25 | disposition home or self-care (01) ==
LOC: C.EDB 13:21 → C.EDC 15:25
DX: I10 Essential (primary) hypertension (principal); R51 Headache; Z82.49 Family history of ischemic heart disease and other diseases of the circulatory system; Z87.891 Personal history of nicotine dependence

== ENCOUNTER → 2017-07-30 | Outpatient (CLI) | payer OTHER ==
[~2017-07-30] MED LIST changes: +GADAVIST IV PRN; +LISI20TA3 PO; -LISI5TAB PO
--- NOTE | 2017-07-30 21:11 | DIAGNOSTIC IMAGING REPORT ---
MRI OF THE BRAIN WITHOUT AND WITH IV CONTRAST CLINICAL HISTORY: Glioblastoma. COMPARISON STUDY: MRI of the brain October 21, [address] June 13, 2017. TECHNIQUE: Utilizing a 1.5 Mariah magnet and dedicated coil, multiplanar, multiecho imaging of the brain was performed pre and postcontrast administration. IV administration of 9 mL of Gadavist contrast was uneventful. Thin cut T1 post contrast imaging was performed with multiplanar reconstruction. FINDINGS: Postoperative findings consistent with a left occipital craniotomy are noted. There has been interval development of multifocal irregular nodular enhancement along the resection cavity. The largest focus is within the anterior aspect of the resection cavity overlying the left superior aspect of the tentorium. This lesion measures 1.7 x 1.4 x 1.4 cm and is new since MRI October 21, 2016. Numerous smaller nodular foci are present. Mild inherent T1 hyperintensity along the resection margin is noted. A 1.5 cm T2 hyperintense focus with mass effect along the left aspect of the body of the corpus callosum is new since prior MRI as well. This demonstrates no enhancement but is suspicious for tumor recurrence. Increased signal intensity within this focus on the diffusion-weighted sequence favors T2 shine through. There has been interval development of signal abnormality within the left parietal and posterior left temporal lobes since prior MRI. This demonstrates mild enhancement and restricted diffusion. There are no extra axial collections. No sites of enhancement remote to the operative bed are noted. Calvarial signal is normal. Orbits and sinuses are unremarkable. Flow-voids for the major intracranial vessels are present. IMPRESSION: Interval development of multifocal nodular enhancement at the periphery of the left parietooccipital resection bed since MRI of October 2016 which is highly suggestive of recurrent neoplasm. Radiation necrosis could appear similar although is considered less likely. In addition, interval development of signal abnormality within the left parietal and posterior left temporal lobes and the body of the corpus callosum which is also suggestive of recurrent neoplasm. Electronically signed by: Quinn Grove M.D. 07/30/2017 9:10 PM Dictated Date/Time: 07/30/2017 8:09 PM
== END | disposition home or self-care (01) ==
LOC: C.MRI 18:27
PROVIDERS: ATTEND Neurological Surgery
DX: C71.9 Malignant neoplasm of brain, unspecified (principal); Z51.11 Encounter for antineoplastic chemotherapy; H53.461 Homonymous bilateral field defects, right side; R94.02 Abnormal brain scan